=== PATIENT | female | born 1990 | race Caucasian/White ===

== ENCOUNTER 2016-05-20 13:53 | Emergency (ER) | payer OTHER ==
[2016-05-20] MEDS ORDERED: IBUPROFEN 600 MG TABLET ONE (14:25)
[2016-05-20 14:37] LABS: URINE BILIRUBIN NEGATIVE (NEGATIVE); URINE BLOOD NEGATIVE (NEGATIVE); URINE GLUCOSE (UA) NEGATIVE (NEGATIVE); URINE LEUKOCYTE ESTERASE TRACE (NEGATIVE); URINE NITRITE NEGATIVE (NEGATIVE); URINE PROTEIN NEGATIVE (NEGATIVE); URINE UROBILINOGEN NORMAL (0-1 mg/dl)
[2016-05-20 14:41] LABS: URINE APPEARANCE CLEAR; URINE COLOR LIGHT YELLOW
[2016-05-20 14:42] LABS: HCG,QUALITATIVE URINE NEGATIVE
== END 2016-05-20 15:04 | disposition home or self-care (01) ==
LOC: ED 13:53
DX: N39.0 Urinary tract infection, site not specified (principal); R11.2 Nausea with vomiting, unspecified; T37.0X5A Adverse effect of sulfonamides, initial encounter; Y92.9 Unspecified place or not applicable
CPT/HCPCS: 81025; 81003; 99283 ×2; A9270